=== PATIENT | male | born 1970 | race Caucasian/White ===

== ENCOUNTER 2023-04-13 19:19 | Emergency (ER) | payer MEDICAID ==
[~2023-04-13] VITALS: Ht 162.6 cm; Wt 61.7 kg
[2023-04-13 20:26] VITALS: BP 132/81
[2023-04-13] MEDS ORDERED: CEPH-588 PO (21:43)
[2023-04-13] MEDS ORDERED: IBUP-2213 PO (21:43)
[2023-04-13 21:55] VITALS: BP 132/81
== END 2023-04-13 21:55 | disposition home or self-care (01) ==
LOC: MED 19:19
DX: L03.115 Cellulitis of right lower limb (principal); Z79.1 Long term (current) use of non-steroidal anti-inflammatories (NSAID); Z79.2 Long term (current) use of antibiotics
CPT/HCPCS: 99283